=== PATIENT | female | born 1985 | race Caucasian/White ===

== ENCOUNTER 2022-02-05 11:59 | Emergency (ER) | payer OTHER ==
[~2022-02-05 11:59] MED LIST: BACTROBAN OINT22 GM EXT; IBUPROFEN600 MG PO
[2022-02-05 13:55] LABS: HEMOGLOBIN 13.9 gm/dl (12.3-15.3); RED BLOOD COUNT 5.06 M/UL (4.00-5.10); WHITE BLOOD COUNT 8.7 K/UL (4.5-11.0)
[2022-02-05 14:29] LABS: BUN/CREATININE RATIO 8 (0-10)
[2022-02-05] MEDS ORDERED: NICODERM CQ1 EAC1 TOP (18:14)
[2022-02-07 10:16] LABS: HBSAG SCREEN Negative (Negative); HEP A AB, IGM Negative (Negative); HEP B CORE AB, IGM Negative (Negative); HEP C VIRUS AB <0.1 (0.0-0.9)
== END 2022-02-07 11:13 ==
LOC: ER1 11:59 → CDU 17:20 → ER1 17:20 → CDU 17:20 → ER1 02-07 11:13
PROVIDERS: Emergency Medicine; Internal Medicine
DX: G92.9 Unspecified toxic encephalopathy (principal); T50.915A Adverse effect of multiple unspecified drugs, medicaments and biological substances, initial encounter; R45.1 Restlessness and agitation; Z20.822 Contact with and (suspected) exposure to COVID-19; F17.200 Nicotine dependence, unspecified, uncomplicated; R45.851 Suicidal ideations; Y92.9 Unspecified place or not applicable
CPT/HCPCS: 70450; 71045; 80053; 80074; 80307; 82550; 82553; 83605; 84439; 84443; 84484; 84703; 85025; 93005; 96372; 99285; G0480; J1650; J2250; J3486; U0002